=== PATIENT | female | born 1950 | race Caucasian/White ===

== ENCOUNTER → 2017-09-10 | Outpatient (CLI) | payer MEDICARE, OTHER ==
[2017-09-10 11:29] LABS: HEMATOCRIT 39.9 % (36.0-47.0); HEMOGLOBIN 13.6 g/dL (12.0-15.5); MEAN CORPUSCULAR HEMOGLOBIN 33.5 pg (27.0-33.4); MEAN CORPUSCULAR VOLUME 99 fl (80-97); PLATELET COUNT 234 10^3/uL (150-450); RED BLOOD COUNT 4.04 10^6/uL (3.72-5.28); RED CELL DISTRIBUTION WIDTH 13.8 % (11.5-14.0); WHITE BLOOD COUNT 8.8 10^3/uL (4.0-10.5)
[2017-09-10 11:57] LABS: ABSOLUTE LYMPHOCYTES# (MANUAL) 1.2 10^3/uL (0.5-4.7); ABSOLUTE MONOCYTES # (MANUAL) 0.1 10^3/uL (0.1-1.4); ABSOLUTE NEUTROPHILS# (MANUAL) 7.5 10^3/uL (1.7-8.2); BASOPHILS % (MANUAL) 0 % (0-2); EOSINOPHILS % (MANUAL) 0 % (0-6); LYMPHOCYTES % (MANUAL) 14 % (13-45); MONOCYTES % (MANUAL) 1 % (3-13); PLATELET COMMENT ADEQUATE; RBC MORPHOLOGY COMMENT NORMO-CYTIC/CHROMIC; SEGMENTED NEUTROPHILS % (MAN) 85 % (42-78); TOTAL CELLS COUNTED 100
--- NOTE | 2017-09-10 12:15 | RADIOLOGY REPORT (SQ) ---
EXAM DESCRIPTION: LUMBAR SPINE COMPLETE; SACROILIAC JOINTS COMPLETED DATE/TIME: 09/10/2017 11:38 am REASON FOR STUDY: SACROILIITIS, NOT ELSEWHERE CLASSIFIED,[employer] COMPARISON: None. FINDINGS: Three views of the SI joints: Includes AP and bilateral shallow oblique imaging. Narrowi ng of the left SI joint. 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 No aggressive erosions. N o sacral fracture or bone lesion. Five views lumbar spine: Includes obliques. Subtle convex right scoliotic curve. 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 No pars defect. No fracture or bone lesion. TECHNICAL DOCUMENTATION: JOB ID: [id number] Reading location - IP/workstation name: [email or web address]
--- NOTE | 2017-09-10 12:16 | RADIOLOGY REPORT (SQ) ---
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 FINDINGS: Three views of the SI joints: Includes AP and bilateral shallow oblique imaging. Narrowi ng of the left SI joint. 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 No aggressive erosions. N o sacral fracture or bone lesion. Five views lumbar spine: Includes obliques. Subtle convex right scoliotic curve. 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 No pars defect. No fracture or bone lesion. TECHNICAL DOCUMENTATION: JOB ID: [id number] Reading location - IP/workstation name: [email or web address]
== END ==
LOC: OD 10:43
PROVIDERS: ATTEND Nurse Practitioner Primary Care
DX: M54.30 Sciatica, unspecified side (principal); M46.1 Sacroiliitis, not elsewhere classified
CPT/HCPCS: 36415; 72110; 72200; 85025; 85379